=== PATIENT | male | born 1960 ===

== ENCOUNTER 2021-10-29 08:00 | Inpatient (IN) | payer OTHER ==
[~2021-10-29] VITALS: Ht 170.2 cm; Wt 96.6 kg
[2021-10-29] MEDS ORDERED: HYZAAR 100-251 EACH PO (09:26)
[2021-10-29] MEDS ORDERED: GLUMETZA500 MG PO (09:26)
[2021-10-29] MEDS ORDERED: NORVASC10 MG PO (09:26)
[2021-10-29] MEDS ORDERED: SINGULAIR 10MG10 MG PO (09:27)
[2021-10-29] MEDS ORDERED: FARXIGA10 MG PO (09:27)
[2021-10-29] MEDS ORDERED: CLONAZEP PO (09:27)
[2021-10-29] MEDS ORDERED: PROTONIX40 M1 PO (09:28)
[2021-10-29] MEDS ORDERED: LYRICA50 MG PO (09:28)
[2021-10-29] MEDS ORDERED: WELLBUTRIN XL300 MG PO (09:28)
[2021-11-09] MEDS ORDERED: TOPIRAMATE50 MG (13:07)
[2021-11-09] MEDS ORDERED: BACLOFEN20 MG (13:08)
[2021-11-09] MEDS ORDERED: COLACE100 MG PO (13:46)
[2021-11-09] MEDS ORDERED: BACTRIM DS TAB1 EACH PO (13:47)
[2021-11-09] MEDS ORDERED: PERCOCET 5-3251 EACH PO (13:47)
[2021-11-09] MEDS ORDERED: MEDROLPACK PO (13:47)
[2021-11-09] MEDS ORDERED: NEURONTIN800 MG PO (13:47)
== END 2021-11-11 22:41 | DRG 455 ==
LOC: SURG 11-09 05:33 → O/R 11-09 05:33 → SURG 11-09 08:00
PROVIDERS: ADMIT Orthopaedic Surgery Orthopaedic Surgery of the Spine; ATTEND Orthopaedic Surgery Orthopaedic Surgery of the Spine
PROC: 0SG00J1 Fusion of Lumbar Vertebral Joint with Synthetic Substitute, Posterior Approach, Posterior Column, Open Approach (ICD-10-PCS; 2021-11-09)
PROC: 0ST20ZZ Resection of Lumbar Vertebral Disc, Open Approach (ICD-10-PCS; 2021-11-09)
PROC: 07DR3ZZ Extraction of Iliac Bone Marrow, Percutaneous Approach (ICD-10-PCS; 2021-11-09)
PROC: XRGB0R7 Fusion of Lumbar Vertebral Joint using Custom-Made Anatomically Designed Interbody Fusion Device, Open Approach, New Technology Group 7 (ICD-10-PCS; principal; 2021-11-09 11:00)
DX: M48.062 Spinal stenosis, lumbar region with neurogenic claudication (principal); M51.36 Other intervertebral disc degeneration, lumbar region; I10 Essential (primary) hypertension; E11.9 Type 2 diabetes mellitus without complications; Z79.84 Long term (current) use of oral hypoglycemic drugs